=== PATIENT | male | born 1965 | race Two or more races ===

== ENCOUNTER 2022-10-08 17:20 | Emergency (ER) | payer MEDICAID, OTHER ==
[~2022-10-08] VITALS: Ht 170.2 cm; Wt 68.0 kg
[2022-10-08 22:15] VITALS: BP 132/87
== END 2022-10-08 22:15 | disposition home or self-care (01) ==
LOC: ER 17:20 → EDBD 17:20 → ER 22:15
DX: S39.012A Strain of muscle, fascia and tendon of lower back, initial encounter (principal); V43.52XA Car driver injured in collision with other type car in traffic accident, initial encounter; Y93.89 Activity, other specified; Y92.89 Other specified places as the place of occurrence of the external cause; Y99.8 Other external cause status
CPT/HCPCS: 72100